=== PATIENT | male | born 1975 | race Two or more races ===

== ENCOUNTER 2016-05-28 13:29 | Emergency (ER) | payer MEDICAID ==
--- NOTE | ~2016-05-28 | ER ---
PATIENT'S NAME: JULISSA GENTILE [facility] AGE: 40 Y [address] ROOM: [place] [address] LOCATION: [facility] ADMIT DATE: 05/28/2016 ER/Outpatient Report DISCHARGE DATE: 05/28/2016 FAMILY PHYSICIAN: Patrice Lane MD ATTENDING PHYSICIAN: Pasquale Feliciano Time of Arrival: Time of Evaluation: Admission date and time documented in the medical record. I saw the patient at 1350 hours. CHIEF COMPLAINT: Chest pain and shortness of breath. HISTORY OF PRESENT ILLNESS: This patient is a 40-year-old male, who has a 4-day history of productive cough of yellow sputum with shortness of breath. Not sleeping very well because of coughing. Has generalized weakness and tiredness, lethargy, and fatigue. No fever, chills, or sweats. No nasal congestion, but is having posterior nasal drainage. No ear pain, throat pain, neck or spine pain. No headache. No fall or trauma. No lightheadedness, dizziness, syncope, or near syncope. No abdominal pain, nausea, vomiting, or diarrhea. No joint or muscle swelling, redness, or pain. No skin eruptions or rash. No neurological changes, or psychiatric issues. The patient does have insulin- dependent diabetes mellitus, type 2. SIGNIFICANT PAST MEDICAL HISTORY: 1. Exogenous obesity. 2. Hypertension. 3. Insulin-dependent diabetes mellitus, type 2. 4. Depression. 5. Cervical spinal stenosis. 6. Dyslipidemia. 7. Atherosclerotic ischemic heart disease with nonobstructive coronary artery disease. PAST SURGICAL HISTORY: Operations: Carpal tunnel release. REVIEW OF SYSTEMS: All systems reviewed by me are negative with the exception of those discussed in the History of the Present Illness. PHYSICAL EXAMINATION: VITAL SIGNS: Temperature 97.2, tympanic; pulse 107, regular; blood pressure 162/104; and O2 saturation on room air is 96%. PATIENT'S NAME: JULISSA GENTILE [facility] AGE: 40 Y [address] ROOM: [place] [address] LOCATION: [facility] ADMIT DATE: 05/28/2016 ER/Outpatient Report DISCHARGE DATE: 05/28/2016 FAMILY PHYSICIAN: Patrice Lane MD ATTENDING PHYSICIAN: Pasquale Feliciano HEENT: Head; normocephalic. Eyes, Ears, Nose, and Throat; clear. Does have posterior drainage. Mucous membranes moist. NECK: No nuchal rigidity. No thyromegaly or cervical lymphadenopathy. No tenderness. SPINE: Negative. LUNGS: Clear. Fairly good air flow. No rales, rhonchi, or wheezes. No respiratory distress. No retractions. No stridor. HEART: Regular. Pulses are palpable. No chest wall or ribcage pain to palpation. ABDOMEN: Obese, soft, nondistended, nontender. Good bowel tones. No organomegaly or abnormal mass palpable. No CVA tenderness. EXTREMITIES: Without peripheral edema, cyanosis, or deformity. Moves all 4 extremities. NEUROLOGIC: Cranial nerves intact. No lateralizing sign. The patient is awake, cooperative. Motor and sensory intact. SKIN: Clear. No skin eruptions or rash. IMAGING STUDIES: Chest x-ray showed no acute infiltrate. We will review x-ray with the radiologist. LABORATORY DATA: CMS was negative except for elevated glucose at 278. Elevated BUN at 26, elevated creatinine at 1.4, and low GFR of 56. Arterial blood gases showed a pH of 7.37, pCO2 of 42, pO2 of 46, and O2 saturation of 80%, suspected that this is venous, not arterial. White count is 7500, 58 segs, 31 lymphs, 8 monos, 2 eos, and 1 baso. Hemoglobin is 13.8, hematocrit is 42.3, and platelet count is 233,000. EMERGENCY DEPARTMENT COURSE: I did give the patient DuoNeb, respiratory treatment. IMPRESSION: 1. Bronchial respiratory infection. 2. Insulin-dependent diabetes mellitus, type 2. 3. Hypertension. 4. Dyslipidemia. 5. Exogenous obesity. PLAN: The patient dismissed to home. Observation. Activity as tolerated. Fluids and diet as tolerated, rest. Continue present home medications and care. Phenergan expectorant with codeine, cough medication as needed for cough. Z- Jarred, take as directed. Mucinex D 600 mg 2 orally twice a day, #40. Albuterol oral inhaler with AeroChamber 2 puffs 30 seconds apart 4 times a day and PATIENT'S NAME: JULISSA GENTILE [facility] AGE: 40 Y [address] ROOM: [place] [id number] LOCATION: [facility] ADMIT DATE: 05/28/2016 ER/Outpatient Report DISCHARGE DATE: 05/28/2016 FAMILY PHYSICIAN: Patrice Lane MD ATTENDING PHYSICIAN: Pasquale Feliciano Follow up with personal physician in 7 to 10 days or sooner if needed. Discussion ensued with the patient concerning my findings and recommendations, he understands. MD GRABIEL DENTON/modl /[id number] d: 05/28/162024 t: 05/29/161836, OUTPATIENT REPORT
[~2016-05-28 13:29] MED LIST: ACTOS 15 MG15 MG PO; ACTOS30 MG PO; DESYREL50 MG PO; GLUCOPHAGE1000 MG PO; GLUCOPHAGE500 MG PO; JANUVIA 100 MG100 MG PO; JANUVIA25 MG PO; LANTUS (IN100 UNIT/M SUB-Q; MAXZIDE-25MG 371 TAB PO; NOVOLOG FL100 UNIT/1 SUB-Q; THERAGRAN-M1 TAB PO
[2016-05-28 14:29] LABS: BASOPHIL # 0.1 K/uL (0.0-0.2); BASOPHIL % 0.8 %; EOSINOPHIL # 0.2 K/uL (0.0-0.5); EOSINOPHIL % 2.3 %; HEMATOCRIT 42.3 % (37.0-53.0); HEMOGLOBIN 13.8 g/dL (12.0-17.0); IMMATURE GRANULOCYTE # 0.1 K/uL (0.0-0.3); IMMATURE GRANULOCYTE % 0.8 %; LYMPHOCYTE # 2.3 K/uL (0.8-4.0); LYMPHOCYTE % 30.6 %; MCH 27.5 pg (27.0-34.0); MCHC 32.6 gm/dL (32.0-36.5); MCV 84.4 fl (83.0-98.0); MONOCYTE # 0.6 K/uL (0.0-1.0); MONOCYTE % 7.9 %; MPV 10.1 fl (9.4-12.4); NEUTROPHIL # (ANC) 4.3 K/uL (1.4-9.0); NEUTROPHIL % 57.6 %; NRBC % 0 /100WBC (0-0.00); PLATELET COUNT 233 K/uL (150-450); RBC 5.01 M/uL (4.00-6.00); RDW-CV 12.8 % (11.9-14.6); WBC 7.5 K/uL (4.0-11.0)
[2016-05-28 14:35] LABS: PCO2 42 mmHg (35-45)
[2016-05-28 14:39] LABS: BICARBONATE 23.8 mmol/L (18.0-23.0); PO2 46 mmHg (80-90)
[2016-05-28 14:45] LABS: ALBUMIN 3.2 gm/dL (3.5-5.0); ANION GAP 12.2 (10.0-19.0); CALCIUM 8.5 mg/dL (8.5-10.5); CREATININE 1.4 mg/dL (0.6-1.3); POTASSIUM 4.2 mMol/L (3.7-5.1); TOTAL PROTEIN 6.5 g/dL (6.0-8.4)
[2016-05-28 14:54] LABS: TOTAL BILIRUBIN 0.4 mg/dL (0.0-1.5)
== END 2016-05-28 15:41 | disposition disaster alternative care site (69) ==
LOC: GMED 13:29
PROVIDERS: Emergency Medicine
DX: J40 Bronchitis, not specified as acute or chronic (principal); E11.9 Type 2 diabetes mellitus without complications; I10 Essential (primary) hypertension; E78.5 Hyperlipidemia, unspecified; E66.8 Other obesity; I25.10 Atherosclerotic heart disease of native coronary artery without angina pectoris
CPT/HCPCS: J0696

== ENCOUNTER → 2016-10-12 | Outpatient (CLI) | payer MEDICAID | LOC: GNUT 10:10 | DX: E11.65 Type 2 diabetes mellitus with hyperglycemia (principal); Z71.3 Dietary counseling and surveillance ==